=== PATIENT | male | born 1985 | race Caucasian/White ===

== ENCOUNTER → 2023-02-07 | Outpatient (CLI) | payer OTHER ==
[~2023-02-07] MED LIST: ISOVUE-300 61% 100ML VIAL ONE; LIDOCAINE 1% MDV 20ML VIAL ONE; PROHANCE 279.3MG/ML 5ML VIAL ONE
== END ==
LOC: M PLAIMG 12:12
PROVIDERS: ATTEND Physician Assistant
DX: S46.011A Strain of muscle(s) and tendon(s) of the rotator cuff of right shoulder, initial encounter (principal)
CPT/HCPCS: 23350; 73223; 76000; A9576; Q9967

== ENCOUNTER → 2023-12-24 | Outpatient (REF) | LOC: M PLAIMG 09:41 | PROVIDERS: ATTEND Internal Medicine | DX: R06.02 Shortness of breath (principal); S63.021A Subluxation of radiocarpal joint of right wrist, initial encounter; Y92.9 Unspecified place or not applicable; Y93.9 Activity, unspecified ==

== ENCOUNTER → 2024-03-11 | Outpatient (CLI) | payer OTHER ==
[~2024-03-11] MED LIST changes: -ISOVUE-300 61% 100ML VIAL ONE; -LIDOCAINE 1% MDV 20ML VIAL ONE; +PROHANCE 279.3MG/ML 15ML VIAL As Ordered ONE; +PROHANCE 279.3MG/ML 5ML VIAL As Ordered ONE; -PROHANCE 279.3MG/ML 5ML VIAL ONE
== END ==
LOC: M RAD 14:28
PROVIDERS: ATTEND Physician Assistant
DX: H93.12 Tinnitus, left ear (principal)
CPT/HCPCS: 70553; A9576